=== PATIENT | female | born 1975 | race Caucasian/White ===

== ENCOUNTER 2021-02-05 06:57 | Emergency (ER) | payer OTHER ==
[~2021-02-05 06:57] MED LIST: BUSPAR 5MG TABLE5 MG PO; PAXIL20 MG PO
[2021-02-05] MEDS ORDERED: TORADOL 10 MG T10 MG PO (09:25)
[2021-02-05] MEDS ORDERED: BACLOFEN10 MG PO (09:25)
[2021-02-05] MEDS ORDERED: ZOFRAN ODT 4 MG4 MG PO (09:25)
[2021-02-05] MEDS ORDERED: VENTOLIN HFA 66.7 GM INH (09:39)
== END 2021-02-05 09:44 | disposition home or self-care (01) ==
LOC: ER1 06:57
DX: R06.02 Shortness of breath (principal); R05 Cough; R52 Pain, unspecified; Z20.822 Contact with and (suspected) exposure to COVID-19; E78.5 Hyperlipidemia, unspecified; I10 Essential (primary) hypertension; F17.210 Nicotine dependence, cigarettes, uncomplicated
CPT/HCPCS: 71045; 96372; 99285; J1885; U0003